=== PATIENT | female | born 1935 | race Caucasian/White ===

== ENCOUNTER 2017-03-23 04:52 | Inpatient (IN) | payer OTHER ==
[2017-03-09 12:54] VITALS: BMI 32.0
[~2017-03-23] VITALS: Ht 162.6 cm; Wt 86.4 kg
[2017-03-23] VITALS (13 sets, daily range): BP systolic 103–155; BP diastolic 67–83; PULSE 68–84; TEMP 36.3–37.1; O2SAT 87–99; Ht 162.6 cm; Wt 86.4 kg
[~2017-03-23 04:52] MED LIST: ASPI81TA28 PO; ATEN-173 PO; CARB0.5D28 OPL; COLE625T PO; CYAN500T13 PO; DTRSR4 PO; GLIM4TAB2 PO; IPRATROPIUM NAE; LISI-729 PO; METF-384 PO; MULT-506 PO; NXM/40 PO; PANT40TA PO; ROSU20TA PO; SUCR1TAB PO; VITA1TAB4 PO
[2017-03-23] MEDS ORDERED: LACTATED RINGER'S 1000ML 1,000 ML IV SCH (06:00)
--- NOTE | 2017-03-23 06:47 | History & Physical Bridge Note ---
H&P Re-Evaluation Bridge Note: I have examined the patient, reviewed the History & Physical and in the interval since the performance of the History & Physical I have noted the following changes of clinical significance: No changes noted
[2017-03-23] MEDS ORDERED: PROPOFOL IV EMULSION 10 MG/ML 20 ML VIAL IV ONE (06:49)
[2017-03-23] MEDS ORDERED: NEOSTIGMINE METHYLSULFATE 5 MG/5 ML SYR ONE (06:49)
[2017-03-23] MEDS ORDERED: LARYING-O-JET KIT (LTA) EXT ONE ×2 (06:49)
[2017-03-23] MEDS ORDERED: GLYCOPYRROLATE INJ 0.2 MG/ML VIAL ONE ×2 (06:49→09:26)
[2017-03-23] MEDS ORDERED: ONDANSETRON INJ 2 MG/ML 2 ML VIAL ONE (06:49)
[2017-03-23] MEDS ORDERED: FENTANYL CITRATE INJ 50 MCG/1 ML 2 ML VIAL ONE (06:49)
[2017-03-23] MEDS ORDERED: ROCURONIUM BROMIDE 10 MG/ML 5 ML VIAL ONE (06:49)
[2017-03-23] MEDS ORDERED: DEXAMETHASONE SOD INJ 4 MG/ML VIAL ONE (06:49)
[2017-03-23] MEDS ORDERED: LIDOCAINE HCL 2% 2 ML VIAL (20MG/ML) ONE (06:49)
[2017-03-23] MEDS ORDERED: BUPIVACAINE LIPOSOME 1/3% 266 MG/20 ML VIAL INFIL ONE (07:27)
[2017-03-23] MEDS ORDERED: SODIUM CHLORIDE 0.9% PF 50 ML VIAL ONE (07:27)
[2017-03-23] MEDS ORDERED: ATROPINE SULFATE 0.1 MG/ML 5ML SYR IV PRN (08:00)
[2017-03-23] MEDS ORDERED: HYDROmorphone INJ 1 MG/ML SYR IV PRN (08:00)
[2017-03-23] MEDS ORDERED: EpHEDrine SULFATE INJ 50 MG/ML AMP IV PRN (08:00)
[2017-03-23] MEDS ORDERED: ONDANSETRON INJ 2 MG/ML 2 ML VIAL IV PRN ×2 (08:00→09:45)
[2017-03-23] MEDS ORDERED: FENTANYL CITRATE INJ 50 MCG/1 ML 2 ML VIAL IV PRN (08:00)
[2017-03-23] MEDS ORDERED: CEFAZOLIN SOD 1 GM VIAL ONE (08:16)
[2017-03-23] MEDS ORDERED: ESMOLOL HCL 10 MG/ML 10 ML VIAL ONE (09:45)
[2017-03-23] MEDS ORDERED: MoRPHine SULFATE 2 MG/ML CARP IV PRN (09:45)
[2017-03-23] MEDS ORDERED: DEXTROSE 50% 50 ML SYR IV PRN (10:00)
[2017-03-23] MEDS ORDERED: GLUCOSE 10 TABS/TUBE PO PRN (10:00)
[2017-03-23] MEDS ORDERED: GLUCOSE 40% GEL 15 GM TUBE PO PRN (10:00)
[2017-03-23] MEDS ORDERED: GLUCAGON FOR INJ 1 MG VIAL SQ PRN (10:00)
--- NOTE | 2017-03-23 10:06 | DIAGNOSTIC IMAGING REPORT ---
CHEST ONE VIEW PORTABLE CLINICAL HISTORY: med mass excision postoperative evaluation COMPARISON STUDY: No previous studies for comparison. FINDINGS: Chest 2 within the left chest. No significant postprocedural pneumothorax. Lungs show mild bronchovascular prominence. Potential trace amount of subcutaneous emphysema. IMPRESSION: No significant pneumothorax post left chest tube placement. Trace subcutaneous emphysema Electronically signed by: Kalin Willoughby M.D. 03/23/2017 10:05 AM Dictated Date/Time: 03/23/2017 10:04 AM
--- NOTE | 2017-03-23 10:36 | Anesthesiology Progress Note ---
Anesthesia Post Op Note Date & Time March 23, 2017 at 10:36 Vital Signs Pain Intensity: 0 Vital Signs Past 12 Hours Date Time Temp Pulse Resp B/P Pulse Ox O2 Delivery O2 Flow Rate FiO2 03/23/17 10:20 56 18 176/72 99 Nasal Cannula 3 03/23/17 10:10 57 18 175/70 99 Mask 6 03/23/17 10:00 57 18 175/76 99 Mask 10 Arterial Line 03/23/17 09:50 36.6 65 18 165/64 99 Mask 10 03/23/17 05:54 37.1 82 20 138/83 95 Room Air Notes Mental Status: alert / awake / arousable, participated in evaluation Pt Amnestic to Procedure: Yes Nausea / Vomiting: adequately controlled Pain: adequately controlled Airway Patency, RR, SpO2: stable & adequate BP & HR: stable & adequate Hydration State: stable & adequate Anesthetic Complications: no major complications apparent
--- NOTE | 2017-03-23 10:39 | OPERATIVE REPORT ---
DATE OF OPERATION: 03/23/2017 PREOPERATIVE DIAGNOSIS: Mediastinal mass. POSTOPERATIVE DIAGNOSIS: Same. PROCEDURE: Left thoracoscopy with excision of mediastinal mass. SURGEON: Dr. Burns. LOGGER ALL ROUND: Chas Gastelum PA-C. ANESTHESIA: General anesthesia with endotracheal intubation with a double lumen tube. SPECIFICS OF PROCEDURE: This is a very nice 81-year-old female who has never smoked cigarettes, who was found to have an enlarging mass in her mediastinum, was fairly far anterior but to the left. We discussed this and elected to proceed with removal. It was not in a good area for the radiologist to insert a needle. On 03/23/2017 I did an uncomplicated thoracoscopic resection of this mass. It appeared to be encapsulated. We had very little in the way of bleeding and essentially no air leak. We did do an Exparel block. He tolerated it very well. He was extubated in the room. OPERATION AND FINDINGS: PROCEDURE: The patient was brought to the operating room and placed in supine position. General anesthesia induced and endotracheal intubation was performed. After turning the patient in the right lateral decubitus position the left chest was prepped and draped in usual sterile fashion. She did have what appeared to be a fungal involvement of her inframammary fold on the left, but we did not make our incisions there. After calling an appropriate time out and giving prophylatic antibiotics one lung intubation ensued. She was sterilely draped. An incision was made from the tip of the scapula, 1 interspace below a 5 mm port was placed. CO2 and insufflated. Upon placing a 5 mm 0 degree scope there were some adhesions of the right upper lobe and the chest wall laterally. Two 10 mm scopes were placed, 1 in about the fourth interspace, one about the sixth interspace more anteriorly. The Harmonic scalpel was used to take down these adhesions without difficulty. The mass was easily seen. It was easily taken down from adhesions of the chest wall; however, it appeared to be adherently involved with the lingula. I used an Endo-GAGE stapler several times and fired across this to remove a small portion along with it. I was unable to get under that and we were anterior to the phrenic nerve. After taking down all of the adhesions posteriorly I was able to free it up using the Harmonic scalpel without difficulty. It was placed in an Endobag and removed. It appeared to be encapsulated. Exparel 266 mg (liposomal bupivacaine) mixed with 60 mL total of normal saline and used to inject intrathoracically for intercostal block from the 2nd to the 11th rib. A chest tube was placed in the anterior inferior incision and directed towards the apex. This was held in place with heavy silk suture. Muscle layers and the other 2 thoracostomy ports were closed with 0 Vicryl. 4-0 Monocryl was used to close the skin incisions. She tolerated it quite well. Extubated in the room. I attest to the content of the Intraoperative Record and any orders documented therein. Any exceptions are noted below. MTDD
[2017-03-23] MEDS: SODIUM CHLORIDE 0.9% 1000ML 1,000 ML IV SCH (11:45)
[2017-03-23] MEDS: OXYCODONE HCL IR 5 MG TAB (IMMEDIATE RELEASE) PO PRN ×2 (11:45→19:32)
[2017-03-23] MEDS ORDERED: FLUCONAZOLE 100 MG TAB PO ONE (11:45)
[2017-03-23] MEDS ORDERED: ARTIFICIAL TEARS OP SOLN OPL PRN ×2 (13:00)
[2017-03-23] MEDS: SUCRALFATE 1 GM TAB PO SCH ×3 (13:10→20:18)
[2017-03-23] MEDS: NYSTATIN POWDER 15GM BTL EXT SCH (13:10)
[2017-03-23] MEDS: INSULIN ASPART 100 UNITS/ML 3 ML PEN SC SCH ×3 (13:13→20:38)
[2017-03-23] MEDS: ACETAMINOPHEN IV 1,000 MG in EMPTY BAG 0 ML IV SCH ×2 (13:40→22:12)
[2017-03-23] MEDS: METOCLOPRAMIDE HCL INJ 5 MG/ML 2 ML VIAL IV. SCH ×2 (13:40→22:14)
[2017-03-23] MEDS: KETOROLAC TROMETHAMINE 15 MG/ML VIAL IV. SCH ×2 (13:40→22:13)
[2017-03-23] MEDS: CEFAZOLIN IV 2,000 MG in DEXTROSE 5% 50ML 100 ML IV SCH ×2 (16:11→23:28)
[2017-03-23] MEDS: DOCUSATE SODIUM 100 MG CAP PO SCH (20:20)
[2017-03-23] MEDS: IPRATROPIUM BROMIDE NASAL SPRAY 0.06% 15ML NAE SCH (20:20)
[2017-03-23] MEDS: ROSUVASTATIN CALCIUM 20 MG TAB PO SCH (20:20)
[2017-03-23] MEDS: ASPIRIN 81 MG ECTAB PO SCH (20:21)
[2017-03-23] MEDS: TOLTERODINE TARTRATE LA 4 MG CAPCR PO SCH (20:21)
[2017-03-23] MEDS: COLESEVELAM 625 MG TAB PO SCH (20:47)
[2017-03-23] MEDS ORDERED: COLESEVELAM 625 MG TAB PO SCH (21:00)
[2017-03-23] MEDS ORDERED: NON-FORMULARY MEDICATION (Esomeprazole Magnesium (Nexium) 40 MG) PO SCH (21:00)
[2017-03-23] MEDS ORDERED: CEFAZOLIN IV 2,000 MG in DEXTROSE 5% 50ML 50 ML IV SCH (23:45)
[2017-03-24] VITALS (8 sets, daily range): BP systolic 98–130; BP diastolic 61–73; PULSE 76–96; TEMP 36.8–37; O2SAT 91–95
[2017-03-24] MEDS: SODIUM CHLORIDE 0.9% 1000ML 1,000 ML IV SCH (02:03)
[2017-03-24] MEDS: METOCLOPRAMIDE HCL INJ 5 MG/ML 2 ML VIAL IV. SCH (05:28)
[2017-03-24] MEDS: KETOROLAC TROMETHAMINE 15 MG/ML VIAL IV. SCH ×3 (05:28→22:00)
[2017-03-24] MEDS: ACETAMINOPHEN IV 1,000 MG in EMPTY BAG 0 ML IV SCH (05:29)
--- NOTE | 2017-03-24 08:04 | DIAGNOSTIC IMAGING REPORT ---
CHEST ONE VIEW PORTABLE CLINICAL HISTORY: Mass excision. COMPARISON STUDY: Chest radiograph March 23, 2017. FINDINGS: A trace left apical pneumothorax with superior pleural separation of 5 mm is noted. A left-sided chest tube remains in place. There is mild left basilar opacity. Linear right midlung opacity favors atelectasis or scarring. There are cholecystectomy clips. There is no evidence of pulmonary edema. IMPRESSION: Trace left apical pneumothorax with left chest tube in place. Electronically signed by: Huber Leyva M.D. 03/24/2017 8:03 AM Dictated Date/Time: 03/24/2017 7:55 AM
[2017-03-24 08:12] LABS: BASO % 0.1 %; BASO ABS # 0.02 K/uL (0-0.2); COMPLETE YES; EOS % 0.3 %; IG% 0.2 %; LYMPH % 27.5 %; LYMPH ABS # 4.04 K/uL (1.2-3.4); MEAN CELL VOLUME 87.7 fL (80-100); MEAN CORPUSCULAR HEMOGLOBIN 28.5 pg (25-34); MEAN CORPUSCULAR HGB CONC 32.5 g/dl (32-36); MEAN PLATELET VOLUME 11.1 fL (7.4-10.4); MONO % 7.1 %; NEUT % 64.8 %; PLATELET COUNT 156 K/uL (130-400); RED BLOOD COUNT 3.65 M/uL (4.2-5.4); WHITE BLOOD COUNT 14.71 K/uL (4.8-10.8)
[2017-03-24] MEDS: FLUCONAZOLE 100 MG TAB PO SCH (08:19)
[2017-03-24] MEDS: CYANOCOBALAMIN 500 MCG TAB (VIT B-12) PO SCH (08:19)
[2017-03-24] MEDS: PANTOprazole SOD 40 MG TAB PO SCH (08:19)
[2017-03-24] MEDS: DOCUSATE SODIUM 100 MG CAP PO SCH ×2 (08:19→21:01)
[2017-03-24] MEDS: TOCOPHERYL, DL-ALPHA 400 INTER.UNIT CAP PO SCH (08:19)
[2017-03-24] MEDS: SUCRALFATE 1 GM TAB PO SCH ×4 (08:19→20:16)
[2017-03-24] MEDS: GLIMEPIRIDE 2 MG TAB PO SCH (08:19)
[2017-03-24 08:20] LABS: INR 1.1 (0.9-1.1); PROTHROMBIN TIME (PATIENT) 12.2 SECONDS (9.0-12.0)
[2017-03-24] MEDS: MULTIVITAMIN TAB PO SCH (08:20)
[2017-03-24] MEDS: LISINOPRIL 5 MG TAB PO SCH (08:20)
[2017-03-24] MEDS: COLESEVELAM 625 MG TAB PO SCH ×2 (08:20→21:02)
[2017-03-24] MEDS: NYSTATIN POWDER 15GM BTL EXT SCH (08:20)
[2017-03-24 08:42] LABS: BUN/CREATININE RATIO 18.7 (10-20); CREATININE 0.82 mg/dl (0.60-1.20); POTASSIUM 4.2 mmol/L (3.5-5.1)
--- NOTE | 2017-03-24 08:50 | DIAGNOSTIC IMAGING REPORT ---
CHEST ONE VIEW PORTABLE HISTORY: chest tube removal COMPARISON: Chest 03/24/2017. FINDINGS: Left chest tube is been removed. Tiny left apical pneumothorax remains unchanged. Mild interstitial thickening is also unchanged. The heart is stable in size. Trace bilateral pleural effusions. Left basilar linear densities the right midlung zone linear density also remain unchanged. Cholecystectomy. IMPRESSION: Status post left chest tube removal. Tiny left pneumothorax persists. Electronically signed by: Jose Garcia M.D. 03/24/2017 8:49 AM Dictated Date/Time: 03/24/2017 8:47 AM
--- NOTE | 2017-03-24 08:57 | Surgery Progress Note ---
Subjective Date of Service: March 24, 2017. Pt. denies SOB. She has tolerated oral intake. She notes some discomfort from chest tube. Objective Vitals Date Time Temp Pulse Resp B/P Pulse Ox O2 Delivery O2 Flow Rate FiO2 03/24/17 07:21 37.0 76 16 98/61 95 Nasal Cannula 2.0 03/24/17 05:12 94 Nasal Cannula 1.0 03/24/17 05:10 Room Air 89.0 03/24/17 03:26 36.9 79 18 100/64 95 Nasal Cannula 1.0 03/23/17 23:30 Nasal Cannula 1.0 03/23/17 23:09 36.9 79 18 103/67 95 Nasal Cannula 1.0 03/23/17 22:40 94 Nasal Cannula 1.0 03/23/17 22:38 87 Room Air 03/23/17 20:15 78 128/74 03/23/17 19:30 36.3 73 19 131/73 94 Room Air 03/23/17 16:21 79 20 114/72 97 Nasal Cannula 2.0 03/23/17 16:00 Room Air 03/23/17 15:19 37.0 81 16 121/74 98 Nasal Cannula 2.0 03/23/17 14:00 84 20 129/77 92 Nasal Cannula 2.0 03/23/17 13:00 78 18 155/67 97 Nasal Cannula 2.0 03/23/17 12:20 72 16 108/73 98 Nasal Cannula 2.0 03/23/17 11:30 68 16 150/70 99 Nasal Cannula 2.0 03/23/17 11:00 98 Nasal Cannula 3.0 03/23/17 11:00 98 Nasal Cannula 3.0 03/23/17 10:40 56 18 154/86 99 Nasal Cannula 3 03/23/17 10:30 36.4 56 18 154/90 99 Nasal Cannula 3 03/23/17 10:20 56 18 176/72 99 Nasal Cannula 3 03/23/17 10:10 57 18 175/70 99 Mask 6 03/23/17 10:00 57 18 175/76 99 Mask 10 Arterial Line 03/23/17 09:50 36.6 65 18 165/64 99 Mask 10 Physical Exam General: + well developed, + well nourished, No distress CV: + RRR Pulmonary: + lungs clear, No accessory muscle use, No respiratory distress Abdomen: + non tender, + soft Extremities: No calf tenderness Neurologic: + alert & oriented x 3 Radiology CXR showed only trace apical left pneumothorax post-pull CXR shows only trace apical left pneumothorax Drains / Tubes chest tube (left sided; 66 cc drainage last shift; no air leak) Assessment & Plan 81 year old female POD#1 Left VATS with excision of mediastinal mass -path pending -CT removed this am -will increase ambulation -encourage use if IS, coughing and deep breathing -continue pain control measures RETENTION -hurley placed yesterday but removed this am for voiding trial INTERTRIGO -noted under breasts -continue diflucan 100 mg daily, mycostatin powder, along with dressing changes bid OTHER -lovenox for DVT prevention -will d/c home if pt. has successful voiding trial and can be weaned off oxygen
--- NOTE | 2017-03-24 09:00 | Discharge Instructions ---
Discharge Instructions Date of Service March 24, 2017. Admission Reason for Admission: Mediastinal Mass, Diabetes Mellitus Discharge Discharge Diagnosis / Problem: Mediastinal Mass Discharge Goals Goal(s): Learn about illness Activity Recommendations Activity Limitations: as noted below Lifting Limitations: none 1. Do not fly or SCUBA dive until cleared to do so by Dr. Burns. 2. You may remove dressing in 3 days and shower thereafter. No tub baths. . Instructions / Follow-Up Instructions / Follow-Up 1. Office appointment with Dr. Burns in 1 week. Office will call you with date and time of appointment. You will need a chest x-ray prior to appointment. 2. Place mycostatin powder under breasts daily x 7 days. Keep area clean and dry. Current Hospital Diet Patient's current hospital diet: Diabetes Type 2 Diet Discharge Diet Recommended Diet: Diabetes Type 2 Diet Procedures Procedures Performed: Left Video-Assisted Thoracoscopy with excision of Medistinal Mass Pending Studies Studies pending at discharge: no Medical Emergencies . Who to Call and When: Medical Emergencies: If at any time you feel your situation is an emergency, please call 911 immediately. . Non-Emergent Contact Non-Emergency issues call your: Surgeon Call Non-Emergent contact if: you have a fever, your pain is not controlled, wound has increased drainage . "Provider Documentation" section prepared by Obed Gastelum. . VTE Core Measure Inpt VTE Proph given/why not?: Enoxaparin (Lovenox)SQ
[2017-03-24] MEDS ORDERED: CLC100 PO (09:13)
[2017-03-24] MEDS ORDERED: TRAM-10 PO (09:13)
[2017-03-24] MEDS ORDERED: DFL100 PO (09:13)
[2017-03-24] MEDS ORDERED: NYSP EXT (09:13)
[2017-03-24 09:18] LABS: CALCIUM 7.6 mg/dl (8.5-10.1)
[2017-03-24] MEDS: IPRATROPIUM BROMIDE NASAL SPRAY 0.06% 15ML NAE SCH ×2 (09:18→21:01)
[2017-03-24] MEDS: INSULIN ASPART 100 UNITS/ML 3 ML PEN SC SCH ×4 (09:24→21:08)
[2017-03-24] MEDS: ENOXAPARIN 40 MG/0.4 ML SYR SQ SCH (12:19)
[2017-03-24] MEDS: ACETAMINOPHEN 325 MG TAB PO SCH ×2 (13:10→20:16)
[2017-03-24] MEDS: ASPIRIN 81 MG ECTAB PO SCH (21:01)
[2017-03-24] MEDS: ROSUVASTATIN CALCIUM 20 MG TAB PO SCH (21:02)
[2017-03-24] MEDS: TOLTERODINE TARTRATE LA 4 MG CAPCR PO SCH (21:02)
[2017-03-25] MEDS: ACETAMINOPHEN 325 MG TAB PO SCH ×5 (00:13→23:46)
[2017-03-25] MEDS: KETOROLAC TROMETHAMINE 15 MG/ML VIAL IV. SCH (05:24)
[2017-03-25 08:40] VITALS: O2SAT 91
--- NOTE | 2017-03-25 08:43 | DIAGNOSTIC IMAGING REPORT ---
CHEST 2 VIEWS ROUTINE HISTORY: hypoxia COMPARISON: Chest 03/24/2017. FINDINGS: Small left hydropneumothorax. This is not significantly changed. Linear density at the left lung base have improved. Mild diffuse interstitial thickening, unchanged. The heart is normal in size. Right midlung zone linear density has also resolved. IMPRESSION: 1. Small left hydropneumothorax. This is not significantly changed. 2. Mild diffuse interstitial thickening is again noted. This could represent mild congestive change or chronic interstitial thickening. 4. Improved aeration within the left lung base. Electronically signed by: Jose Garcia M.D. 03/25/2017 8:41 AM Dictated Date/Time: 03/25/2017 8:39 AM
[2017-03-25 09:25] VITALS: BP 102/68
[2017-03-25] MEDS: INSULIN ASPART 100 UNITS/ML 3 ML PEN SC SCH ×4 (09:25→21:15)
[2017-03-25] MEDS: SUCRALFATE 1 GM TAB PO SCH ×4 (09:26→21:18)
[2017-03-25] MEDS: NYSTATIN POWDER 15GM BTL EXT SCH (09:26)
--- NOTE | 2017-03-25 09:26 | Surgery Progress Note ---
Subjective Date of Service: March 25, 2017. Pt. notes she is not SOB. No CP or abdominal pain. No N/V and tolerating oral intake well. Discussed with RN--pt. has oxygen desaturations in low to mid 80s with ambulation that improve with 1 liter of oxygen via NC. Pt. also required hurley catheter last night due to inability to void. No other concerns noted Objective Vitals Date Time Temp Pulse Resp B/P Pulse Ox O2 Delivery O2 Flow Rate FiO2 03/25/17 00:15 Nasal Cannula 1.0 03/24/17 23:23 36.8 83 18 107/67 94 Nasal Cannula 1.0 03/24/17 20:45 96 109/69 03/24/17 16:00 Nasal Cannula 1.0 03/24/17 15:15 37.0 89 17 103/63 92 Nasal Cannula 1.0 03/24/17 10:40 36.9 83 16 130/73 91 Room Air Physical Exam General: + well developed, + well nourished, No distress CV: + RRR Pulmonary: + pertinent finding (BS are decreased at bases bilaterally ), No accessory muscle use, No respiratory distress, No rhonchi, No wheezing Abdomen: + non tender, + non-distended, + soft Extremities: No calf tenderness Neurologic: + alert & oriented x 3 Radiology CXR today shows small left apical PTX unchanged from post-pull CXR; there is bibasilar atelectasis L>R Assessment & Plan 81 year old female POD#1 Left VATS with excision of mediastinal mass -path pending -continue mobilization and pain control measures HYPOXIA -noted with ambulation -likely due to atelectasis -will ambulation -pt. encouraged to use IS, along with coughing and deep breathing: -pt. noted to obtain 500 cc on IS at time of my visit RETENTION -pt. required replacement of hurley (03/24/17) -discussed with urology: -it is felt retention likely due to recent surgery/anesthesia -pt. will require hurley/bladder rest x 7 days, with trial of void as oupt. -urology to call pt. for office appt. -discussed with RN--pt. will be instructed on hurley care -pt. state she feels comfortable going home with hurley INTERTRIGO -noted under breasts -continue diflucan 100 mg daily, mycostatin powder, along with dressing changes bid OTHER -lovenox for DVT prevention -will d/c home once pt. weaned off oxygen -visiting nursing has been arranged
[2017-03-25] MEDS: GLIMEPIRIDE 2 MG TAB PO SCH (09:27)
[2017-03-25] MEDS: IPRATROPIUM BROMIDE NASAL SPRAY 0.06% 15ML NAE SCH ×2 (09:27→21:16)
[2017-03-25] MEDS: PANTOprazole SOD 40 MG TAB PO SCH (09:28)
[2017-03-25] MEDS: MULTIVITAMIN TAB PO SCH (09:28)
[2017-03-25] MEDS: FLUCONAZOLE 100 MG TAB PO SCH (09:28)
[2017-03-25] MEDS: CYANOCOBALAMIN 500 MCG TAB (VIT B-12) PO SCH (09:28)
[2017-03-25] MEDS: DOCUSATE SODIUM 100 MG CAP PO SCH ×2 (09:28→21:19)
[2017-03-25] MEDS: COLESEVELAM 625 MG TAB PO SCH ×2 (09:29→21:19)
[2017-03-25] MEDS: TOCOPHERYL, DL-ALPHA 400 INTER.UNIT CAP PO SCH (09:29)
[2017-03-25] MEDS: LISINOPRIL 5 MG TAB PO SCH (09:30)
[2017-03-25] MEDS: ENOXAPARIN 40 MG/0.4 ML SYR SQ SCH (09:53)
--- NOTE | 2017-03-25 10:16 | Urology Consultation ---
History General Date of Service: March 25, 2017. Primary Care Physician: Josef Adair D.O. Pt seen a urologist before?: No History of Present Illness 81 year old female s/p excision of mediastinal mass. Unfortunately she has developed post op urinary retention for which urology is consulted. Trial of void x2-3 attempted and she failed to void on her own. Hurley was reinserted. Pt reports no previous issues of urinary retention or urinary issues. Other than current inability to void denies any bothersome urinary symptoms. Laboratory Last 24 Hours Test 03/24/17 11:57 03/24/17 17:27 03/24/17 20:36 03/25/17 08:22 Bedside Glucose 153 mg/dl 164 mg/dl 201 mg/dl 178 mg/dl Current Inpatient Medications Medications (Trade) Dose Ordered Sig/Bull Route Start Time Stop Time Status Last Admin Dose Admin Fluconazole (Diflucan Tab) 100 mg QAM PO 03/24/17 09:00 04/03/17 08:59 03/25/17 09:28 100 MG Oxycodone HCl (Roxicodone Immediate Rel Tab) 5 mg Q6H PRN PO 03/23/17 09:45 04/06/17 09:44 03/23/17 19:32 5 MG Nystatin (Mycostatin Powder) 1 appln DAILY EXT 03/23/17 09:45 04/22/17 09:44 03/25/17 09:26 1 APPLN Aspirin (Ecotrin Tab) 81 mg HS PO 03/23/17 21:00 04/22/17 20:59 03/24/17 21:01 81 MG Atenolol (Tenormin Tab) 25 mg HS PO 03/23/17 21:00 04/22/17 20:59 03/24/17 21:01 25 MG Cyanocobalamin (Vitamin B-12 Tab) 500 mcg QAM PO 03/24/17 09:00 04/23/17 08:59 03/25/17 09:28 500 MCG Lisinopril (Zestril Tab) 5 mg QAM PO 03/24/17 09:00 04/23/17 08:59 Multivitamins (Multivitamin Tab) 1 tab QAM PO 03/24/17 09:00 04/23/17 08:59 03/25/17 09:28 1 TAB Pantoprazole Sodium (Protonix Tab) 40 mg QAM PO 03/24/17 09:00 04/23/17 08:59 03/25/17 09:28 40 MG Rosuvastatin Calcium (Crestor Tab) 20 mg HS PO 03/23/17 21:00 04/22/17 20:59 03/24/17 21:02 20 MG Sucralfate (Carafate Tab) 1 gm QIDM PO 03/23/17 12:30 04/22/17 12:29 03/25/17 09:26 1 GM Tolterodine Tartrate (Detrol LA Cap) 4 mg QPM PO 03/23/17 21:00 04/22/17 20:59 03/24/17 21:02 4 MG Artificial Tears (Artificial Tears) 1 drops PRN PRN OPL 03/23/17 13:00 04/22/17 12:59 Glimepiride (Amaryl Tab) 4 mg QAM PO 03/24/17 09:00 04/23/17 08:59 03/25/17 09:27 4 MG lc-Oyxlu-Blowbtwxlo Acetate (Vitamin E Cap) 400 interunit QAM PO 03/24/17 09:00 04/23/17 08:59 03/25/17 09:29 400 INTERUNIT Ipratropium [place] (Atrovent Nasal [place] 0.06%) 2 sprays BID GENET 03/23/17 21:00 04/22/17 20:59 03/25/17 09:27 2 SPRAYS Insulin Aspart (novoLOG ASPART) SLIDING SCALE G... ACHS SC 03/23/17 12:00 04/22/17 11:59 03/25/17 09:25 5 UNITS Enoxaparin Sodium (Lovenox Inj) 40 mg DAILY SQ 03/24/17 09:00 04/23/17 08:59 03/25/17 09:53 40 MG Ondansetron HCl (Zofran Inj) 4 mg Q4H PRN IV 03/23/17 09:45 04/22/17 09:44 Docusate Sodium (coLACE CAP) 100 mg BID PO 03/23/17 21:00 04/22/17 20:59 03/25/17 09:28 100 MG Morphine Sulfate (MoRPHine SULFATE INJ) Q1H PRN IV 03/23/17 09:45 04/06/17 09:44 Glucose (Glucose 40% Gel) 15-30 GRAMS 15 GRAMS... UD PRN PO 03/23/17 10:00 04/22/17 09:59 Glucose (Glucose Chew Tab) 4-8 Tablets 4 Tabl... UD PRN PO 03/23/17 10:00 04/22/17 09:59 Dextrose (Dextrose 50% 50ML Syringe) 25-50ML OF 50% DW IV FOR... UD PRN IV 03/23/17 10:00 04/22/17 09:59 Glucagon (Glucagon Inj) 1 mg UD PRN SQ 03/23/17 10:00 04/22/17 09:59 Colesevelam HCl (Welchol) 1,250 mg BID PO 03/23/17 21:00 04/22/17 20:59 03/25/17 09:29 1,250 MG Acetaminophen (Tylenol Tab) 650 mg Q6 PO 03/24/17 12:00 04/23/17 11:59 03/25/17 05:27 650 MG Labs were reviewed and are within normal limits unless listed below. Labs are available in the chart and at [facility] Past History diabetes, GERD, other (mediastinal mass) Social History Hx Tobacco Use In Past Year?: No Smoking: no current use Alcohol: no current use Drug use: none Marital status: Housing status: lives with family Occupation status: retired Allergies Coded Allergies: No Known Allergies (Unverified , 03/23/17) Medications Home Medications: Home Meds and Scripts Medications Dose Route/Sig Max Daily Dose Days Date Category Dose Instructions Nystop (Nystatin) 45 Appln/15 Gm Powd 1 Appln EXT DAILY 7 03/24/17 Rx Ultram (Tramadol HCl) 50 Mg Tab 50 Mg PO Q4H PRN 03/24/17 Rx Docusate Sodium 100 Mg Cap 100 Mg PO BID 30 03/24/17 Rx Fluconazole 100 Mg Tab 100 Mg PO QAM 5 03/24/17 Rx Refresh Tears (Carboxymethylcellulose Sodium) 0.5 % Dileep 1 Drop OPL PRN 03/09/17 Reported Nexium (Esomeprazole Magnesium) 40 Mg Capcr 40 Mg PO QPM 03/09/17 Reported Sucralfate 1 Gm Tab 1 Tab PO QIDM 30 03/09/17 Reported [Ipratropium] 2 Sprays GENET BID 03/09/17 Reported Protonix (Pantoprazole Sodium) 40 Mg Tab 40 Mg PO QAM 03/09/17 Reported Detrol LA (Tolterodine Tartrate) 4 Mg Capcr 1 Cap PO QPM 90 03/09/17 Reported Crestor (Rosuvastatin Calcium) 20 Mg Tab 20 Mg PO HS 03/09/17 Reported Tenormin (Atenolol) 25 Mg Tab 25 Mg PO HS 03/09/17 Reported Zestril (Lisinopril) 5 Mg Tab 5 Mg PO QAM 03/09/17 Reported Glimepiride 4 Mg Tab 1 Tab PO QAM 90 03/09/17 Reported Aspirin Ec (Aspirin) 81 Mg Tab 81 Mg PO HS 03/09/17 Reported PT WILL CHECK WITH SURGEON Welchol (Colesevelam HCl) 625 Mg Tab 1,350 Mg PO BID 03/09/17 Reported Glucophage (Metformin Hcl) 1,000 Mg Tab 1,000 Mg PO BID 03/09/17 Reported Vitamin B12 500MCG (Cyanocobalamin) 500 Mcg Tab 500 Mcg PO QAM 03/09/17 Reported Vitamin E 400 Unit Tab 400 Units PO QAM 03/09/17 Reported Multivitamin (Multivitamins) Tab 1 Tab PO QAM 03/09/17 Reported Inpatient Medications: Current Inpatient Medications Medications (Trade) Dose Ordered Sig/Bull Route Start Time Stop Time Status Last Admin Dose Admin Fluconazole (Diflucan Tab) 100 mg QAM PO 03/24/17 09:00 04/03/17 08:59 03/25/17 09:28 100 MG Oxycodone HCl (Roxicodone Immediate Rel Tab) 5 mg Q6H PRN PO 03/23/17 09:45 04/06/17 09:44 03/23/17 19:32 5 MG Nystatin (Mycostatin Powder) 1 appln DAILY EXT 03/23/17 09:45 04/22/17 09:44 03/25/17 09:26 1 APPLN Aspirin (Ecotrin Tab) 81 mg HS PO 03/23/17 21:00 04/22/17 20:59 03/24/17 21:01 81 MG Atenolol (Tenormin Tab) 25 mg HS PO 03/23/17 21:00 04/22/17 20:59 03/24/17 21:01 25 MG Cyanocobalamin (Vitamin B-12 Tab) 500 mcg QAM PO 03/24/17 09:00 04/23/17 08:59 03/25/17 09:28 500 MCG Lisinopril (Zestril Tab) 5 mg QAM PO 03/24/17 09:00 04/23/17 08:59 Multivitamins (Multivitamin Tab) 1 tab QAM PO 03/24/17 09:00 04/23/17 08:59 03/25/17 09:28 1 TAB Pantoprazole Sodium (Protonix Tab) 40 mg QAM PO 03/24/17 09:00 04/23/17 08:59 03/25/17 09:28 40 MG Rosuvastatin Calcium (Crestor Tab) 20 mg HS PO 03/23/17 21:00 04/22/17 20:59 03/24/17 21:02 20 MG Sucralfate (Carafate Tab) 1 gm QIDM PO 03/23/17 12:30 04/22/17 12:29 03/25/17 09:26 1 GM Tolterodine Tartrate (Detrol LA Cap) 4 mg QPM PO 03/23/17 21:00 04/22/17 20:59 03/24/17 21:02 4 MG Artificial Tears (Artificial Tears) 1 drops PRN PRN OPL 03/23/17 13:00 04/22/17 12:59 Glimepiride (Amaryl Tab) 4 mg QAM PO 03/24/17 09:00 04/23/17 08:59 03/25/17 09:27 4 MG pi-Iygul-Tddmefcddx Acetate (Vitamin E Cap) 400 interunit QAM PO 03/24/17 09:00 04/23/17 08:59 03/25/17 09:29 400 INTERUNIT Ipratropium [place] (Atrovent Nasal [place] 0.06%) 2 sprays BID GENET 03/23/17 21:00 04/22/17 20:59 03/25/17 09:27 2 SPRAYS Insulin Aspart (novoLOG ASPART) SLIDING SCALE G... ACHS SC 03/23/17 12:00 04/22/17 11:59 03/25/17 09:25 5 UNITS Enoxaparin Sodium (Lovenox Inj) 40 mg DAILY SQ 03/24/17 09:00 04/23/17 08:59 03/25/17 09:53 40 MG Ondansetron HCl (Zofran Inj) 4 mg Q4H PRN IV 03/23/17 09:45 04/22/17 09:44 Docusate Sodium (coLACE CAP) 100 mg BID PO 03/23/17 21:00 04/22/17 20:59 03/25/17 09:28 100 MG Morphine Sulfate (MoRPHine SULFATE INJ) Q1H PRN IV 03/23/17 09:45 04/06/17 09:44 Glucose (Glucose 40% Gel) 15-30 GRAMS 15 GRAMS... UD PRN PO 03/23/17 10:00 04/22/17 09:59 Glucose (Glucose Chew Tab) 4-8 Tablets 4 Tabl... UD PRN PO 03/23/17 10:00 04/22/17 09:59 Dextrose (Dextrose 50% 50ML Syringe) 25-50ML OF 50% DW IV FOR... UD PRN IV 03/23/17 10:00 04/22/17 09:59 Glucagon (Glucagon Inj) 1 mg UD PRN SQ 03/23/17 10:00 04/22/17 09:59 Colesevelam HCl (Welchol) 1,250 mg BID PO 03/23/17 21:00 04/22/17 20:59 03/25/17 09:29 1,250 MG Acetaminophen (Tylenol Tab) 650 mg Q6 PO 03/24/17 12:00 04/23/17 11:59 03/25/17 05:27 650 MG Review of Systems Review of Systems Constitutional: No fever Eyes: No blurred vision Neurological: No dizzy Endocrine: No excessive thirst Gastrointestinal: No abdominal pain Cardiovascular: No chest pain Respiratory: No shortness of breath Female : + see HPI, + urinary retention Physical Exam Vital Signs: Vital Signs Past 12 Hours Date Time Temp Pulse Resp B/P Pulse Ox O2 Delivery O2 Flow Rate FiO2 03/25/17 09:25 102/68 03/25/17 00:15 Nasal Cannula 1.0 03/24/17 23:23 36.8 83 18 107/67 94 Nasal Cannula 1.0 Physical Exam: General Appearance: WD/WN, no apparent distress Neck: no JVD Respiratory/Chest: no respiratory distress, no accessory muscle use Neurologic/Psychiatric: alert, normal mood/affect, oriented x 3 Skin: normal color, warm/dry Assessment & Plan Assessment & Plan Post op urinary retention Recommend leaving hurley in for 7-10 days for bladder rest. Plan to follow up in office for TOV. Has home health coming in- can assist with hurley cath care. Discussed above with pt and and agreeable to plan. Thanks for the consult. Our office will call for follow up appt.
[2017-03-25 11:21] VITALS: BP 126/56; PULSE 83; TEMP 36.7; O2SAT 93
[2017-03-25 14:38] VITALS: O2SAT 95
[2017-03-25 15:07] VITALS: BP 99/66; PULSE 91; TEMP 37; O2SAT 93
[2017-03-25] MEDS: ASPIRIN 81 MG ECTAB PO SCH (21:18)
[2017-03-25] MEDS: ROSUVASTATIN CALCIUM 20 MG TAB PO SCH (21:21)
[2017-03-25] MEDS: TOLTERODINE TARTRATE LA 4 MG CAPCR PO SCH (21:21)
[2017-03-25 23:00] VITALS: BP 94/51; PULSE 83; TEMP 37; O2SAT 92
[2017-03-26] MEDS: ACETAMINOPHEN 325 MG TAB PO SCH (05:37)
[2017-03-26 06:50] LABS: MEAN CELL VOLUME 87.4 fL (80-100); MEAN CORPUSCULAR HEMOGLOBIN 27.6 pg (25-34); MEAN CORPUSCULAR HGB CONC 31.6 g/dl (32-36); MEAN PLATELET VOLUME 11.1 fL (7.4-10.4); PLATELET COUNT 178 K/uL (130-400); RED BLOOD COUNT 3.66 M/uL (4.2-5.4); WHITE BLOOD COUNT 12.89 K/uL (4.8-10.8)
[2017-03-26 07:08] LABS: CREATININE 0.85 mg/dl (0.60-1.20)
[2017-03-26 08:14] VITALS: BP 127/74; PULSE 79; TEMP 36.7; O2SAT 92
[2017-03-26] MEDS: NYSTATIN POWDER 15GM BTL EXT SCH (08:32)
[2017-03-26] MEDS: PANTOprazole SOD 40 MG TAB PO SCH (08:33)
[2017-03-26] MEDS: DOCUSATE SODIUM 100 MG CAP PO SCH (08:33)
[2017-03-26] MEDS: CYANOCOBALAMIN 500 MCG TAB (VIT B-12) PO SCH (08:33)
[2017-03-26] MEDS: LISINOPRIL 5 MG TAB PO SCH (08:33)
[2017-03-26] MEDS: FLUCONAZOLE 100 MG TAB PO SCH (08:33)
[2017-03-26] MEDS: MULTIVITAMIN TAB PO SCH (08:33)
[2017-03-26] MEDS: TOCOPHERYL, DL-ALPHA 400 INTER.UNIT CAP PO SCH (08:33)
[2017-03-26] MEDS: COLESEVELAM 625 MG TAB PO SCH (08:33)
[2017-03-26] MEDS: IPRATROPIUM BROMIDE NASAL SPRAY 0.06% 15ML NAE SCH (08:33)
[2017-03-26] MEDS: ENOXAPARIN 40 MG/0.4 ML SYR SQ SCH (08:34)
[2017-03-26] MEDS: SUCRALFATE 1 GM TAB PO SCH (08:34)
[2017-03-26] MEDS: GLIMEPIRIDE 2 MG TAB PO SCH (08:34)
[2017-03-26] MEDS: INSULIN ASPART 100 UNITS/ML 3 ML PEN SC SCH (08:50)
[2017-03-26 11:23] VITALS: BP 127/74; PULSE 79; TEMP 36.7; O2SAT 92
--- NOTE | 2017-03-26 12:08 | DISCHARGE SUMMARY ---
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 2. Urinary retention. 3. Hypoxemia. HOSPITAL COURSE: This is a delightful 81-year-old female who was found to have a mass in her mediastinum. It was a bit inferior on the left side. On 03/23/2017 I brought the patient to the operating room and did an uncomplicated thoracoscopic resection of this mass. She did quite well with this, and extubated in the room. We had met negligible blood loss. We were able to pull her chest tube out quite quickly; however, the patient developed urinary retention. The chest tube was pulled on postop day 1. Her x-ray showed a small left pleural effusion and some atelectasis. I was surprised that she was hypoxic; however, with ambulation and with aggressive pulmonary toilet, the patient was able to be weaned off of oxygen. She looked quite good. She is moving her bowels. She is ambulating in the hallway and tolerating a diet. Unfortunately, we had to replace her Cardoso catheter a couple of times as she developed urinary retention. She was seen by the urologist and the decision was made to leave the Cardoso in place. She was discharged home with a Cardoso catheter. She was draining clear urine. Otherwise, I was quite happy with the patient's pain control. Discharge instructions were given for her wound care. I will see her back in the office in about a week. She will need to see urologist also.
--- NOTE | 2017-04-01 10:03 | EDITING REQUIRED CODING QUERY ---
PATHOLOGY To promote full compliance with coding requirements relating to patient care, physician participation is requested in all cases of application security architect uncertainty. Please assist us with the question(s) below: Please review the Pathology report and please document any relevant diagnosis(es) below. Thank you. [facility] Diagnosis(es):
== END 2017-03-26 12:15 | disposition home health service (06) | DRG 164 ==
LOC: ENRESERVTM → ENRESERVDT → C.ACU 04:52 → C.MSN 06:45
PROVIDERS: ADMIT Surgery; ATTEND Surgery
PROC: 0WBC4ZZ Excision of Mediastinum, Percutaneous Endoscopic Approach (ICD-10-PCS; principal; 2017-03-23 07:15)
DX: C38.1 Malignant neoplasm of anterior mediastinum (principal); J98.11 Atelectasis; I50.9 Heart failure, unspecified; R09.02 Hypoxemia; E11.9 Type 2 diabetes mellitus without complications; K21.9 Gastro-esophageal reflux disease without esophagitis; E78.5 Hyperlipidemia, unspecified; I10 Essential (primary) hypertension; E66.9 Obesity, unspecified; R33.8 Other retention of urine; L30.4 Erythema intertrigo

== ENCOUNTER → 2017-04-04 | Outpatient (CLI) | payer OTHER ==
[~2017-04-04] MED LIST changes: +CLC100 PO; +DFL100 PO; +NYSP EXT; +TRAM-10 PO
--- NOTE | 2017-04-04 10:32 | DIAGNOSTIC IMAGING REPORT ---
CHEST 2 VIEWS ROUTINE CLINICAL HISTORY: J98.59 Mediastinal mass COMPARISON STUDY: 03/25/2017, outside PET/CT scan dated 01/28/2017 FINDINGS: The cardiac and mediastinal contours remain stable. The anterior mediastinal mass described on the outside PET/CT scan, is difficult to visualize on conventional radiographic imaging. There are a few wispy opacities within the retrosternal fat. There is improving interstitial thickening. There is persisting blunting of the left lateral posterior costophrenic angles. The heart is normal in size. There is no overt failure. There is no lobar consolidation. IMPRESSION: 1. Improving interstitial thickening 2. Persistent blunting of the left lateral posterior costophrenic angles. Electronically signed by: Kamar Ruiz M.D. 04/04/2017 10:31 AM Dictated Date/Time: 04/04/2017 10:28 AM
== END | disposition home or self-care (01) ==
LOC: C.RAD 10:07
PROVIDERS: ATTEND Surgery
DX: J98.59 Other diseases of mediastinum, not elsewhere classified (principal); R91.8 Other nonspecific abnormal finding of lung field

== ENCOUNTER 2019-08-01 08:53 | Inpatient (IN) ==
--- NOTE | 2019-07-18 13:38 | Anesthesiology Consultation ---
Date of Service July 18, 2019 Assessment & Plan Chart Review Chart Review: Acceptable Risk for Surgery and Pending: Refer to Additional Notes / Consult section (need last cardiac note from six months ago) Consults Requested none History Surgery Operation Date: 07/25/19 11:30 Proposed Procedures p Robotic Left Video Assisted Thoracoscopy with Left Upper Lobe Wedge Resection - Jayro Burns MD, FACS Height/Weight Height: 5 ft 4 in Weight: 80.286 kg Allergies Allergy/AdvReac Type Severity Reaction Status Date / Time No Known Allergies Allergy Verified 07/17/19 07:30 Medications Home Medications Medication Instructions Recorded Confirmed Last Taken aspirin 81 mg tablet,delayed 81 mg PO QAM tab 07/05/19 07/17/19 Unknown release atenolol 25 mg tablet 25 mg PO QAM tab 07/05/19 07/17/19 Unknown colesevelam 625 mg tablet 625 mg PO BID tab 07/05/19 07/17/19 Unknown glimepiride 4 mg tablet 4 mg PO QAM tab 07/05/19 07/17/19 Unknown lisinopril 5 mg tablet 5 mg PO QAM tab 07/05/19 07/17/19 Unknown metformin ER 1,000 mg 24 hr 1,000 mg PO BID tab 07/05/19 07/17/19 Unknown tablet,extended release rosuvastatin 20 mg tablet 20 mg PO HS tab 07/05/19 07/17/19 Unknown tolterodine ER 4 mg 4 mg PO QAM cap 07/05/19 07/17/19 Unknown capsule,extended release 24 hr esomeprazole magnesium 40 mg PO QAM 07/17/19 07/17/19 Unknown losartan 25 mg PO QAM 07/17/19 07/17/19 Unknown Past Medical History Medical History Anemia hx Diabetes mellitus, type 2 niddm GERD (gastroesophageal reflux disease) Hiatal hernia Hyperlipidemia Hypertension Lung cancer with biopsy and radiation (~5 years ago) Osteoarthritis Overactive bladder Skin cancer hx Past Family History Family History Mother Family history of diabetes mellitus FHx: cancer Sister Family history of diabetes mellitus FHx: cancer Past Surgical History Surgical History History of appendectomy History of cardiac cath no stents. ~2013. follows with Dr. Purdy. History of cataract surgery bilateral History of section x1 History of cholecystectomy History of colonoscopy History of dilatation and curettage History of thoracotomy with biopsy History of total knee replacement right S/P TALISHA-BSO Social History Smoking Status: Never smoker Do You Dip or Chew Tobacco: No Hx Alcohol Use: No Hx Substance Use: No substance use type: does not use Testing Laboratory Results WBC 8.2 H/H 11.5/36.4 NA 135 K 5 CL 106 CO2 22 BUN 16 CREATININE 0.87 GLUCOSE 113 GFR 61 Electrocardiogram Date: 07/16/19 Findings: + NSR @ (91) Cardiac Catheterization Date: 02/23/17 non obstructive cardiac disease. normal LV function. normal LVEDP Pulmonary Function Test Date: 07/12/19 moderately impaired diffusion. moderate restriction by reduced total lung capacity
[~2019-08-01 08:53] MED LIST changes: -ASPI81TA28 PO; -ATEN-173 PO; -CARB0.5D28 OPL; -CLC100 PO; -COLE625T PO; -CYAN500T13 PO; +DEXAMETHASONE SOD INJ 4 MG/ML VIAL ONE; -DFL100 PO; -DTRSR4 PO; -GLIM4TAB2 PO; +GLYCOPYRROLATE 0.2 MG/ML VIAL ONE; -IPRATROPIUM NAE; +LIDOCAINE HCL 2% 2 ML VIAL/AMP(20MG/ML) INFIL ONE; -LISI-729 PO; +LR 15ML/HR IV SCH; -METF-384 PO; +MIDAZOLAM HCL 1 MG/ML 2ML VIAL ONE; -MULT-506 PO; +NEOSTIGMINE METHYLSULFATE 5 MG/5 ML SYR ONE; -NXM/40 PO; -NYSP EXT; +ONDANSETRON INJ 2 MG/ML 2 ML VIAL ONE; -PANT40TA PO; +PHENYLEPHRINE HCL 10 MG/ML VIAL ONE; +PROPOFOL IV EMULSION 10 MG/ML 20 ML VIAL IV ONE; +ROCURONIUM BROMIDE 10 MG/ML 5 ML VIAL ONE; -ROSU20TA PO; -SUCR1TAB PO; -TRAM-10 PO; -VITA1TAB4 PO; +fentaNYL citrate 100 MCG/2 ML VIAL ONE
[2019-08-01] MEDS ORDERED: ATROPINE SULFATE 0.1 MG/ML 10ML SYR IV PRN ×2 (12:05→17:09)
[2019-08-01] MEDS ORDERED: HYDROmorphone INJ 1 MG/ML SYRINGE IV PRN ×2 (12:05→17:10)
[2019-08-01] MEDS ORDERED: ONDANSETRON INJ 2 MG/ML 2 ML VIAL IV PRN ×3 (12:05→17:57)
[2019-08-01] MEDS ORDERED: KETOROLAC TROMETHAMINE 15 MG/ML VIAL IV PRN ×2 (12:05→17:09)
--- NOTE | 2019-08-01 12:17 | History & Physical Bridge Note ---
Date of Service August 01, 2019 History & Physical Bridge Note I have examined the patient, reviewed the History & Physical and in the interval since the performance of the History & Physical I have noted the following changes of clinical significance: no changes noted
[2019-08-01] MEDS ORDERED: BUPIVACAINE 0.5 % 5 MG/1 ML MPF 30ML VIAL ONE (12:20)
[2019-08-01] MEDS ORDERED: BUPIVACAINE LIPOSOME 1.3% 266 MG/20 ML VIAL ONE (12:21)
[2019-08-01] MEDS ORDERED: SODIUM CHLORIDE 0.9% PF 50 ML VIAL ONE (12:21)
[2019-08-01] MEDS ORDERED: CEFAZOLIN 250 MG/ML 1 GM VIAL ONE (13:42)
[2019-08-01] MEDS ORDERED: CEFAZOLIN 2000MG 2,000 MG/15 ML SYR IV ONE (13:47)
[2019-08-01] MEDS ORDERED: fentaNYL citrate 100 MCG/2 ML VIAL ONE (14:32)
--- NOTE | 2019-08-01 16:18 | Post Operative Brief Note ---
PG Immediate Post Op with CF Date of Surgery August 01, 2019 Pre & Post Diagnosis Operation Date: 08/01/19 10:50 Pre-Op Diagnosis: Mediastinal Mass, Left Lung Mass Post-Op Diagnosis: Mediastinal Mass, Left Lung Mass Procedure Operation Date: 08/01/19 10:50 Actual Procedures p Robotic Left Video Assisted Thoracoscopy with extensive lysis of adhesions and Left Upper Lobe Wedge Resection(Left) - Jayro Burns MD, FACS Surgeon Jayro Burns MD, FACS [employer] Pati MURPHY Estimated Blood Loss 200 Findings Consistent with Post-Op Diagnosis Drains Chest Tube
[2019-08-01] MEDS ORDERED: METOCLOPRAMIDE HCL INJ 5 MG/ML 2 ML VIAL IV ONE (16:40)
--- NOTE | 2019-08-01 16:46 | XRay Report ---
XR chest 1V portable CLINICAL HISTORY: left wedge resection COMPARISON STUDY: Chest radiograph March 24, 2017. PET/CT July 31, 2019. FINDINGS: Left chest tube is in place. Postoperative findings within the left lung are noted. No pneu mothorax is identified. There is pulmonary vascular congestion with possible mild pulmonary edema. Th ere is a trace right pleural effusion. Mild left lung airspace opacities are noted. IMPRESSION: 1. Postoperative findings within the left lung. Left chest tube in place. No pneumothorax identified. 2. Pulmonary vascular congestion with suspected mild pulmonary edema. Trace right pleural effusion. 3. Left lung airspace opacities. Electronically signed by: Huber Leyva M.D. 08/01/2019 4:45 PM
--- NOTE | 2019-08-01 17:45 | Anesthesiology Progress Note ---
Date of Service August 01, 2019 Anesthesia Post Procedure Vital Signs Vital Signs: Temp Pulse Resp BP BP Pulse Ox 08/01/19 17:35 66 20 142/54 H 98 08/01/19 17:25 65 20 141/57 H 98 08/01/19 17:15 36.5 C 66 21 139/61 98 08/01/19 17:05 65 19 144/58 H 97 08/01/19 16:55 65 24 150/59 H 100 08/01/19 16:45 64 20 125/85 98 08/01/19 16:35 36.0 C L 73 21 177/82 H 98 08/01/19 09:32 36.6 C 73 16 120/51 L 95 Pain Intensity Left Lateral Chest: Pain Intensity: 4 Transfer of Care Handoff Completed per policy Notes Mental Status: alert / awake / arousable and participated in evaluation Patient Amnestic to Procedure: Yes Nausea / Vomiting: adequately controlled Pain: adequately controlled Airway Patency, RR, SpO2: stable & adequate BP & HR: stable & adequate Hydration State: stable & adequate Anesthetic Complications: no major complications apparent and Pt Satisfied with anesthetic care
[2019-08-01] MEDS ORDERED: MoRPHine SULFATE 2 MG/ML CARP IV PRN (17:57)
[2019-08-01] MEDS ORDERED: SODIUM CHLORIDE 0.9% 1000ML 1,000 ML IV SCH (17:57)
[2019-08-01] MEDS ORDERED: PNEUMOCOCCAL ADMINISTRATION CHARGE ONE (19:15)
[2019-08-01] MEDS ORDERED: PNEUMOCOCCAL POLYSACCHARIDES 25 MCG/0.5 ML VIAL/SYR IM ONE (19:15)
[2019-08-01] MEDS: ACETAMINOPHEN 1,000 MG/100 ML VIAL IV SCH (19:36)
[2019-08-01] MEDS: ROSUVASTATIN CALCIUM 20 MG TAB PO SCH (20:19)
[2019-08-01] MEDS: PANTOprazole 40 MG TAB PO SCH (20:19)
[2019-08-01] MEDS: DOCUSATE SODIUM 100 MG CAP PO SCH (20:19)
[2019-08-01] MEDS: INSULIN ASPART 100 UNITS/ML 3 ML PEN SC SCH (21:01)
[2019-08-01] MEDS: OXYCODONE HCL IR 5 MG TAB (IMMEDIATE RELEASE) PO PRN (21:22)
[2019-08-01] MEDS: METOCLOPRAMIDE HCL INJ 5 MG/ML 2 ML VIAL IV SCH (23:17)
--- NOTE | 2019-08-01 23:24 | Operative Report ---
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 PROCEDURE: 1. Robot-assisted left thoracoscopic takedown of extensive adhesions. 2. Wedge resection of portion of lingula with old staple line and with some mediastinal tissues and fat. SURGEON: Jayro Burns MD. HIGH SCHOOL COMPUTER SCIENCE TEACHER: JEFFREY Carrasco (Mr. Gastelum was present for the entire case and was at the patient's bedside while I was at console). ANESTHESIA: General anesthesia with endotracheal intubation using double lumen tube. SPECIFICS OF PROCEDURE AND FINDINGS: Roxanna Ocampo is a very nice elderly 83-year-old female who underwent a resection of a mediastinal mass. 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 She had radiation therapy. I resected a portion of her left medial lingula, but it was not microscopically involved with cancer. At her staple line, the mass has been enlarging and this was evaluated with navigational bronchoscopies, but they were nondiagnostic. Quite concerned and referred her to me for tissue diagnosis. On 08/01/2019, patient was brought into the operating room and she had marked adhesions. The lingula was quite adherent to the mediastinal fat which is not surprising. This was the area of the mass. I excised all of this. I went to the chest wall and down into the pericardium and took all the tissue between. This was very thickened. I removed the old staple line. She tolerated it well with negligible air leak. She did ooze, however, had about 200 mL of blood loss, but hemodynamically did very well. DESCRIPTION OF PROCEDURE: The patient was brought to the operating room and laid in supine position. General anesthesia was induced and endotracheal intubation performed with a double lumen tube. The patient was placed in right lateral decubitus position. The left chest prepped and draped in the usual sterile fashion. I used 3 arms on the robot. We placed 3 separate ports. I started off by placing a port posteriorly an interspace above the tip of the scapula, a bit more medial. Upon entering, it could be seen there were no adhesions in this area, but there were marked adhesions. We then placed a camera port which was a couple of interspaces lower and more anterior and then several interspaces lower, we placed a third 8 mm port. We also placed an assistance port anteriorly. We then proceeded with a meticulous takedown of all the adhesions. It was quite extensive, but we took all of them down. There was oozing from the chest wall which we cauterized as well as from the adhesions themselves. We then came upon the lingula into the pericardial fat and it was quite stuck down. As can be imagined from the prior surgery and the radiation, there were adhesions. I stayed on the chest wall and went medially until I got more medial than the mass and then went down to the pericardium. I removed all of this tissue, it was quite stuck and we used the cautery from the [place] forceps. We were then able to pull up the entire lingula and I suctioned off a fairly good portion of this by using Endo-GAGE staplers. I really did not see much of an air leak. At the conclusion of the case, she had a tiny leak. We lost about 200 mL of blood from oozing of the chest wall in the adhesion areas, but we were very meticulous about her blood or blood loss. A 266 mg of Exparel was mixed with 30 mL of 0.5% Marcaine and 250 mL of normal saline. These were injected into each of the 4 port sites. We then performed an intercostal block under thoracoscopic guidance from the 2nd to the 12th rib. We placed a 24-Estonian chest tube to the anterior most port site directed towards the apex. We sutured it in place with heavy silk suture. A 4-0 Monocryl was used in running subcuticular fashion to approximate the wound edges. She tolerated it quite well and was extubated in the room and her x-ray looked quite good at the conclusion. I attest to the content of the Intraoperative Record and any orders documented therein. Any exception s are noted below.
[2019-08-02] MEDS: ACETAMINOPHEN 1,000 MG/100 ML VIAL IV SCH (02:01)
--- NOTE | 2019-08-02 07:34 | XRay Report ---
XR chest 1V portable CLINICAL HISTORY: 83 years-old Female presenting with left lung resection. TECHNIQUE: Portable upright AP view of the chest was obtained. COMPARISON: 08/01/2019. FINDINGS: Large bore left pleural drain positioned at the left mid lung, slightly retracted from prior exam. Ex uberant soft tissue emphysema along the left chest wall tracking into the left base of the neck incre ased from prior exam. Atherosclerosis of the aortic arch. Cardiac silhouette mildly enlarged. Diffuse ly prominent lung markings. Postsurgical changes with a suture line noted in the left hilar and infra hilar regions. No large effusion. Redemonstration of the trace left apical pneumothorax. Degenerative changes of the thoracic spine. Upper abdomen normal. IMPRESSION: 1. Interval development of significant chest wall and base of the neck emphysema. This raises concer n for an air leak. 2. Additionally, new trace left apical pneumothorax. 3. Suspected mild congestive change in the setting of mild cardiomegaly. Electronically signed by: Saleem Da Silva M.D. 08/02/2019 7:33 AM
[2019-08-02] MEDS: METOCLOPRAMIDE HCL INJ 5 MG/ML 2 ML VIAL IV SCH (08:08)
[2019-08-02] MEDS: IPRATROPIUM BROMIDE NASAL SPRAY 0.06% 15ML NAE SCH ×3 (08:09→20:26)
[2019-08-02] MEDS: ASPIRIN 81 MG ECTAB PO SCH (08:11)
[2019-08-02] MEDS: TOCOPHERYL, DL-ALPHA 400 UNITS CAP PO SCH (08:11)
[2019-08-02] MEDS: TOLTERODINE TARTRATE LA 4 MG CAPCR PO SCH (08:11)
[2019-08-02] MEDS: MULTIVITAMIN TAB PO SCH (08:11)
[2019-08-02] MEDS: DOCUSATE SODIUM 100 MG CAP PO SCH ×2 (08:11→20:27)
[2019-08-02] MEDS: CYANOCOBALAMIN 500 MCG TABLET (VITAMIN B-12) PO SCH (08:11)
[2019-08-02] MEDS: lisinopriL 5 MG TAB PO SCH (08:12)
[2019-08-02] MEDS: LOSARTAN POTASSIUM 25 MG TAB PO SCH (08:12)
[2019-08-02] MEDS: ATENOLOL 25 MG TABLET PO SCH (08:12)
--- NOTE | 2019-08-02 08:39 | Anesthesiology Progress Note ---
Date of Service August 02, 2019 Anesthesia Post Procedure Vital Signs Vital Signs: Temp Pulse Pulse Resp BP BP Pulse Ox 08/02/19 05:53 36.7 C 94 H 16 103/65 92 08/02/19 04:05 36.7 C 90 18 118/68 94 08/02/19 01:54 37.2 C 92 H 16 100/64 95 08/01/19 23:50 36.4 C L 88 16 119/71 95 08/01/19 22:55 36.6 C 91 H 18 108/57 L 99 08/01/19 21:47 36.7 C 85 18 115/68 97 08/01/19 21:17 36.8 C 72 18 120/71 97 08/01/19 20:03 37.0 C 77 18 108/67 98 08/01/19 18:57 36.4 C L 82 16 137/78 97 08/01/19 18:24 36.7 C 70 18 133/79 97 08/01/19 17:35 66 20 142/54 H 98 08/01/19 17:25 65 20 141/57 H 98 08/01/19 17:15 36.5 C 66 21 139/61 98 08/01/19 17:05 65 19 144/58 H 97 08/01/19 16:55 65 24 150/59 H 100 08/01/19 16:45 64 20 125/85 98 08/01/19 16:35 36.0 C L 73 21 177/82 H 98 08/01/19 09:32 36.6 C 73 16 120/51 L 95 Pain Intensity Left Lateral Chest: Pain Intensity: 8 Left Shoulder: Pain Intensity: 7 Notes Mental Status: alert / awake / arousable and participated in evaluation Patient Amnestic to Procedure: Yes Nausea / Vomiting: adequately controlled Pain: adequately controlled Airway Patency, RR, SpO2: stable & adequate BP & HR: stable & adequate Hydration State: stable & adequate Anesthetic Complications: no major complications apparent and Pt Satisfied with anesthetic care
[2019-08-02] MEDS: ACETAMINOPHEN 325 MG TAB PO SCH ×3 (08:55→20:27)
[2019-08-02] MEDS: INSULIN ASPART 100 UNITS/ML 3 ML PEN SC SCH ×4 (08:57→20:53)
[2019-08-02] MEDS ORDERED: GLIMEPIRIDE 2 MG TAB PO SCH (09:00)
--- NOTE | 2019-08-02 09:31 | Progress Note ---
DATE: 08/02/2019 Ms. Ocampo was seen today on 08/02/2019. Yesterday, we performed a reoperative robot-assisted thoracoscopic takedown of multiple adhesions as well as a wedge resection of the lingular mass and mediastinal mass. The patient has a history of thymic carcinoma. We were quite happy with how the surgery turned out. She had a very small air leak which is present but still very small. She has drained some fluid, but I thought her chest x-ray looked quite good. At this point, I would simply make sure we continue to ambulate her, work on pulmonary toilet. When her air leak stops, we will pull this tube and send her home. I suspect she is going to be here for another couple of days.
[2019-08-02] MEDS: OXYCODONE HCL IR 5 MG TAB (IMMEDIATE RELEASE) PO PRN (12:45)
[2019-08-02] MEDS ORDERED: ENOXAPARIN INJ 40 MG/0.4 ML SYR SQ ONE (17:15)
[2019-08-02] MEDS: PANTOprazole 40 MG TAB PO SCH (20:27)
[2019-08-02] MEDS: ROSUVASTATIN CALCIUM 20 MG TAB PO SCH (20:27)
[2019-08-03] MEDS: OXYCODONE HCL IR 5 MG TAB (IMMEDIATE RELEASE) PO PRN ×2 (00:30→10:30)
[2019-08-03] MEDS: ACETAMINOPHEN 325 MG TAB PO SCH ×4 (04:04→21:17)
[2019-08-03 06:03] LABS: Hematocrit (blood only) 28.5 % (37-47); Mean Corpuscular Hgb Conc 31.6 g/dL (32-36); Mean Corpuscular Volume 88.8 fL (80-100); Mean Platelet Volume 10.9 fL (7.4-10.4); Platelet Count 136 K/uL (130-400); RDW Coefficient of Variation 16.4 % (11.5-14.5); RDW Standard Deviation 53.8 fL (36.4-46.3); Red Blood Count 3.21 M/uL (4.2-5.4); White Blood Count 11.21 K/uL (4.8-10.8)
[2019-08-03 06:35] LABS: Creatinine Clr Calc Pharmacy 34.7 ml/min; Est GFR (African American) 46.8; Est GFR (Non-African American) 40.4
--- NOTE | 2019-08-03 07:18 | XRay Report ---
XR chest 1V portable CLINICAL HISTORY: 83 years-old Female presenting with left lung resection. TECHNIQUE: Portable upright AP view of the chest was obtained. COMPARISON: 08/02/2019. FINDINGS: Large bore left pleural drain terminates in the mid left lung. Extensive associated soft tissue emphy sema tracking along the left chest wall and left base of the neck. Atherosclerosis of the aortic arch . The cardiac silhouette is enlarged though the left heart border is now obscured. Interval increase in left mid to lower lung opacity likely within the left upper lobe given obscuration of the left hea rt border. Persistent small left apical pneumothorax not significantly changed from prior. No large e ffusion. Right lung demonstrates interlobular septal thickening. Degenerative changes of the thoracic spine. Upper abdomen normal. IMPRESSION: 1. Persistent small left pleural pneumothorax with the left pleural drain in place. Significant asso ciated soft tissue emphysema. 2. Increased left lung opacity suggests new infiltrate or increased atelectasis. 3. Increased congestive change in the right lung in the setting of cardiomegaly. No luis pulmonary edema in the right lung. Electronically signed by: Saleem Da Silva M.D. 08/03/2019 7:17 AM
[2019-08-03] MEDS: IPRATROPIUM BROMIDE NASAL SPRAY 0.06% 15ML NAE SCH ×3 (08:17→21:15)
[2019-08-03] MEDS: lisinopriL 5 MG TAB PO SCH (08:18)
[2019-08-03] MEDS: MULTIVITAMIN TAB PO SCH (08:19)
[2019-08-03] MEDS: ASPIRIN 81 MG ECTAB PO SCH (08:19)
[2019-08-03] MEDS: CYANOCOBALAMIN 500 MCG TABLET (VITAMIN B-12) PO SCH (08:19)
[2019-08-03] MEDS: LOSARTAN POTASSIUM 25 MG TAB PO SCH (08:19)
[2019-08-03] MEDS: ATENOLOL 25 MG TABLET PO SCH (08:19)
[2019-08-03] MEDS: TOCOPHERYL, DL-ALPHA 400 UNITS CAP PO SCH (08:19)
[2019-08-03] MEDS: TOLTERODINE TARTRATE LA 4 MG CAPCR PO SCH (08:19)
[2019-08-03] MEDS: DOCUSATE SODIUM 100 MG CAP PO SCH ×2 (08:20→21:17)
[2019-08-03] MEDS ORDERED: PIPERACILL/TAZOBAC CONSULT ACTIVE PRN (09:09)
[2019-08-03] MEDS: INSULIN ASPART 100 UNITS/ML 3 ML PEN SC SCH ×4 (09:14→21:09)
[2019-08-03] MEDS: ENOXAPARIN INJ 40 MG/0.4 ML SYR SQ SCH (09:17)
--- NOTE | 2019-08-03 09:21 | Surgery Progress Note ---
Date of Service August 03, 2019 Assessment & Plan (1) Mediastinal mass: -pt. is s/p Wedge Resection of Left Lung on 08/01/19 -pathology is pending -CT noted to have intermittent air leak so will stay in today -CXR today shows small pneumothorax and concern for LLL atelectasis/infiltrate -due to CXR findings will proceed as follows: -start zosyn -chest percussion and flutter valve (discussed with respiratory therapist) -initiate mucinex -encourage coughing, deep breathing, use of IS -will repeat CXR in am -continue ambulation -lovenox in place for DVT prevention Subjective Pt. notes she is doing well without SOB or CP. No N/V and notes her apatite is good and tolerating diet. No difficulty voiding. She has been ambulating in hallway. No fevers, shakes, chills. Physical Exam Constitutional: well developed and well nourished; no acute distress Respiratory: normal respiratory effort; no respiratory distress and no labored breathing BS are noted to be decreased at bases; no rhonchi noted Gastrointestinal (Abdomen): Percussion/Palpation: abdomen soft; abdomen nontender Musculoskeletal: -no calf tenderness Results & Data Vital Signs (Past 12 Hours) Vital Signs Temp Pulse Pulse Resp BP Pulse Ox 08/03/19 07:20 36.6 C 107 H 18 96/64 L 96 08/03/19 04:40 96 08/03/19 04:07 90 08/03/19 03:55 36.6 C 119 H 18 91/58 L 94 08/03/19 00:00 36.4 C L 94 H 18 96/60 L 98 08/02/19 22:41 89 91/56 L PG Care Time/CCT Total # of Minutes Spent Total Time Spent with Patient: Total time spent is greater than 50% in coor dination of care (as documented) at patient's floor/unit and/or counseling patient:
[2019-08-03] MEDS ORDERED: PIPERACILLIN/TAZOBACTAM 3.375 GM in DEXTROSE 5% 100 ML IV ONE (09:30)
[2019-08-03] MEDS: guaiFENesin 600 MG TABCR PO SCH ×2 (10:29→21:17)
[2019-08-03] MEDS: ALBUT/IPRATROP 3MG/0.5MG NEB 3 ML VIAL NEB SCH ×3 (11:09→19:28)
[2019-08-03] MEDS: PIPERACILLIN/TAZOBACTAM 3.375 GM in DEXTROSE 5% 100 ML IV SCH (15:49)
[2019-08-03] MEDS: ROSUVASTATIN CALCIUM 20 MG TAB PO SCH (21:17)
[2019-08-03] MEDS: PANTOprazole 40 MG TAB PO SCH (21:17)
[2019-08-04] MEDS: PIPERACILLIN/TAZOBACTAM 3.375 GM in DEXTROSE 5% 100 ML IV SCH ×4 (00:01→23:45)
[2019-08-04] MEDS: ALBUT/IPRATROP 3MG/0.5MG NEB 3 ML VIAL NEB SCH ×4 (00:06→19:17)
[2019-08-04] MEDS: ACETAMINOPHEN 325 MG TAB PO SCH ×4 (03:44→20:40)
[2019-08-04 06:18] LABS: Basophils # (auto) 0.03 K/uL (0-0.2); Basophils % (auto) 0.3 %; Eosinophils # (auto) 0.22 K/uL (0-0.5); Eosinophils % (auto) 2.4 %; Hematocrit (blood only) 27.6 % (37-47); Hemoglobin 8.8 g/dL (12.0-16.0); Immature Granulocytes # (auto) 0.01 K/uL (0.00-0.02); Immature Granulocytes % (auto) 0.1 %; Lymphocytes # (auto) 2.44 K/uL (1.2-3.4); Lymphocytes % (auto) 26.4 %; Mean Corpuscular Hemoglobin 28.1 pg (25-34); Mean Corpuscular Volume 88.2 fL (80-100); Mean Platelet Volume 10.3 fL (7.4-10.4); Monocytes # (auto) 0.68 K/uL (0.11-0.59); Monocytes % (auto) 7.4 %; Neutrophils # (auto) 5.86 K/uL (1.4-6.5); Neutrophils % (auto) 63.4 %; Platelet Count 147 K/uL (130-400); RDW Coefficient of Variation 16.6 % (11.5-14.5); RDW Standard Deviation 53.8 fL (36.4-46.3); Red Blood Count 3.13 M/uL (4.2-5.4); White Blood Count 9.24 K/uL (4.8-10.8)
[2019-08-04 06:20] LABS: Mean Corpuscular Hgb Conc 31.9 g/dL (32-36)
[2019-08-04 06:34] LABS: BUN Creatinine Ratio 26.1 (10-20); Creatinine Clr Calc Pharmacy 43.2 ml/min; Est GFR (Non-African American) 52.6
--- NOTE | 2019-08-04 06:49 | Surgery Progress Note ---
Date of Service August 04, 2019 Assessment & Plan (1) Mediastinal mass: -pt. is s/p Wedge Resection of Left Lung on 08/01/19 -pathology did not reeal cancer -CT with no air leak this morning -discussed with Dr. Burns and will likely d/c it tomorrow -CXR today again shows small pneumothorax; area of LLL atelectasis/infiltrate has shown some improvement since yesterday's CXR: will continue the following: -zosyn (day #2) -chest percussion and flutter valve as discussed with respiratory therapist -alicia rueda -continue coughing, deep breathing, use of IS -CXR in am -continue ambulation -lovenox in place for DVT prevention Subjective Pt. state she had a good night. She denies SOB or CP. No N/V and she continues to tolerate diet. No difficulty voiding. She continues to ambulate in hallway. No fevers, shakes, chills. Discussed wtih RN and no concerns noted. Physical Exam Physical Exam: no crepitus noted in soft tissue of chest wall, back, or neck Constitutional: well developed and well nourished; no acute distress Neck: trachea midline Respiratory: normal respiratory effort; no respiratory distress and no labored breathing BS are decreased at bases L>R, however air movement at left base has improved since yesterday's exam Cardiovascular: Rate/Rhythm: regular rate and regular rhythm Gastrointestinal (Abdomen): Percussion/Palpation: abdomen soft; abdomen nontender Musculoskeletal: no calf tenderness Psychiatric: A+Ox3, euthymic affect Results & Data Vital Signs (Past 12 Hours) Vital Signs Temp Pulse Resp BP BP Pulse Ox 08/04/19 03:51 36.4 C L 98 H 17 106/57 L 90 08/04/19 00:06 96 H 18 93 08/03/19 23:53 36.6 C 98 H 17 115/66 94 08/03/19 19:35 93 H 20 90 PG Care Time/CCT Total # of Minutes Spent Total Time Spent with Patient: Total time spent is greater than 50% in coordination of care (as documented) at patient's floor/unit and/or counseling patient:
--- NOTE | 2019-08-04 07:07 | XRay Report ---
XR chest 1V portable CLINICAL HISTORY: left wedge resection COMPARISON STUDY: 08/03/2019 FINDINGS: There is left-sided subcutaneous emphysema unchanged from the preceding study. The left-wilma ed chest tube remains unchanged in position. There is a stable 19 mm left apical pneumothorax. There is improving pulmonary vascular congestion. There are improving left mid and lower lung zone airspace opacities[ IMPRESSION: 1. Persistent 19 mm left apical pneumothorax 2. Improving pulmonary vascular congestion 3. Slight improvement in the left mid and lower lung zone airspace opacities Electronically signed by: Kamar Ruiz M.D. 08/04/2019 7:06 AM
[2019-08-04] MEDS: INSULIN ASPART 100 UNITS/ML 3 ML PEN SC SCH ×4 (08:52→20:43)
[2019-08-04] MEDS: ENOXAPARIN INJ 40 MG/0.4 ML SYR SQ SCH (08:53)
[2019-08-04] MEDS: DOCUSATE SODIUM 100 MG CAP PO SCH ×2 (08:54→20:38)
[2019-08-04] MEDS: CYANOCOBALAMIN 500 MCG TABLET (VITAMIN B-12) PO SCH (08:54)
[2019-08-04] MEDS: MULTIVITAMIN TAB PO SCH (08:54)
[2019-08-04] MEDS: guaiFENesin 600 MG TABCR PO SCH ×2 (08:54→20:39)
[2019-08-04] MEDS: ATENOLOL 25 MG TABLET PO SCH (08:54)
[2019-08-04] MEDS: TOCOPHERYL, DL-ALPHA 400 UNITS CAP PO SCH (08:55)
[2019-08-04] MEDS: TOLTERODINE TARTRATE LA 4 MG CAPCR PO SCH (08:55)
[2019-08-04] MEDS: ASPIRIN 81 MG ECTAB PO SCH (08:55)
[2019-08-04] MEDS: LOSARTAN POTASSIUM 25 MG TAB PO SCH (08:55)
[2019-08-04] MEDS: IPRATROPIUM BROMIDE NASAL SPRAY 0.06% 15ML NAE SCH ×3 (08:56→20:34)
[2019-08-04] MEDS: ROSUVASTATIN CALCIUM 20 MG TAB PO SCH (20:39)
[2019-08-04] MEDS: PANTOprazole 40 MG TAB PO SCH (20:39)
[2019-08-05] MEDS: ALBUT/IPRATROP 3MG/0.5MG NEB 3 ML VIAL NEB SCH ×3 (00:44→13:13)
[2019-08-05] MEDS: ACETAMINOPHEN 325 MG TAB PO SCH ×3 (03:13→14:39)
--- NOTE | 2019-08-05 07:35 | XRay Report ---
XR chest 1V portable HISTORY: pneumothorax COMPARISON: Chest 08/04/2019. FINDINGS: No significant change in the small left pneumothorax. Left-sided chest tube is unchanged in position. The heart remains mildly enlarged. Mild vascular congestion persists. Improved aeration wi thin the left lung base. IMPRESSION: 1. No change in the small left apical pneumothorax. 2. Improved aeration within the left lung base. 3. A left-sided chest tube is unchanged in position. Electronically signed by: Jose Garcia M.D. 08/05/2019 7:33 AM
[2019-08-05] MEDS: PIPERACILLIN/TAZOBACTAM 3.375 GM in DEXTROSE 5% 100 ML IV SCH ×2 (08:56→09:29)
[2019-08-05] MEDS: ENOXAPARIN INJ 40 MG/0.4 ML SYR SQ SCH (08:56)
[2019-08-05] MEDS: LOSARTAN POTASSIUM 25 MG TAB PO SCH (08:57)
[2019-08-05] MEDS: CYANOCOBALAMIN 500 MCG TABLET (VITAMIN B-12) PO SCH (08:57)
[2019-08-05] MEDS: DOCUSATE SODIUM 100 MG CAP PO SCH (08:57)
[2019-08-05] MEDS: IPRATROPIUM BROMIDE NASAL SPRAY 0.06% 15ML NAE SCH ×2 (08:57→13:22)
[2019-08-05] MEDS: MULTIVITAMIN TAB PO SCH (08:57)
[2019-08-05] MEDS: TOCOPHERYL, DL-ALPHA 400 UNITS CAP PO SCH (08:58)
[2019-08-05] MEDS: ATENOLOL 25 MG TABLET PO SCH (08:58)
[2019-08-05] MEDS: TOLTERODINE TARTRATE LA 4 MG CAPCR PO SCH (08:58)
[2019-08-05] MEDS: ASPIRIN 81 MG ECTAB PO SCH (08:58)
[2019-08-05] MEDS: guaiFENesin 600 MG TABCR PO SCH (08:59)
[2019-08-05] MEDS: INSULIN ASPART 100 UNITS/ML 3 ML PEN SC SCH ×3 (09:00→17:42)
--- NOTE | 2019-08-05 09:57 | XRay Report ---
XR chest 1V portable HISTORY: chest tube removal COMPARISON: Chest 08/05/2019. FINDINGS: No significant change in the small left apical pneumothorax status post left chest tube rem oval. Patchy left mid to lower lung zone airspace opacities are again noted. The heart is stable in s ize. No pleural effusions. The right lung is clear. IMPRESSION: No significant change in the small left apical pneumothorax status post left chest tube removal. The left mid to lower lung zone airspace opacities persist. Electronically signed by: Jose Garcia M.D. 08/05/2019 9:55 AM
--- NOTE | 2019-08-05 23:44 | Discharge Summary ---
DATE OF ADMISSION: 08/01/2019 DATE OF DISCHARGE: 08/05/2019 DISCHARGE DIAGNOSES: 1. Inflammatory mass lingula. 2. Pulmonary infiltrates of unknown etiology postoperatively. 3. Status post thymectomy for thymic carcinoma 3 years ago. HOSPITAL COURSE: This patient is a delightful 83-year-old female who has a history of undergoing a left thoracoscopic excision of mediastinal mass which turned out to be thymic carcinoma. She got radiation therapy after this and followed and Dr. Josef De La Cruz from [facility] performed two navigational bronchoscopies as there was a mass in the anterior mediastinum adjacent to and involving her lingula which were concerning. He tried 2 navigational bronchoscopies, did not get a diagnosis and it was not an area that was accessible with a needle biopsy. After much discussion, we elected to proceed with a minimally invasive approach to this. On 08/01/2019, the patient underwent a robot-assisted left thoracoscopy with lysis of multiple adhesions. I then did a wedge resection of the lingula and excised all the pericardial fat in this area. She did well except there were some small holes that she had a small air leak postoperatively, but this eventually resolved by postoperative day 3. We kept her 1 more night. On postoperative day 4, she had no air leak. I removed her chest tube and her x-ray looked quite good except for an infiltrative pattern in the left lower lobe. She had been started on antibiotics, but really was not febrile. I am going to go ahead and keep her on for another week of Augmentin. I sent her home with tramadol although she really was not taking narcotics. I told her not to fill the prescription unless she needed to. Incisions were clean. She sounded good. She did not have a productive cough. Overall, I was quite pleased. She is on room air and ambulating in the hallway. I will see her back in the office later this week with an x-ray.
--- NOTE | 2019-08-08 11:00 | Coding Query ---
CODING QUERY To promote full compliance with coding requirements relating to patient care, provider participation is requested in all cases of fire assistant uncertainty. Please assist us with the question(s) below: Coding Question(s): Patient admitted with mediastinal mass-underwent excision of lung lingula. Patient had air leak, resolving after 3 days postop. Path,negative for cancer. Please check below the phrase that describes the postoperative air leak. Thanks for your help! [facility] Physician's Response(s): ____x___ The postoperative air leak is an expected occurrence of this procedure The postoperative airleak is a Complication of this procedure Cannot clinically correlate if the postoperative airleak is a complication or expected occurrence Other/ Please document: Principal Diagnosis: "that condition established after study, to be chiefly responsible for occasioning the admission of the patient to the hospital for care." Co-Existing Principal Diagnosis: "when two or more diagnoses equally meet the criteria for principal diagnosis as determined by the circumstances of admission, diagnostic work up, and/or therapy provided, and the Alphabetic Index, Tabular List, or another coding guideline does not provide sequencing direction, any one of the diagnoses may be sequenced first." "When the physician has documented what appears to be a current diagnosis in the body of the record, but has not included the diagnosis in the final diagnostic statement, the physician should be asked whether the diagnosis should be added." (Source [facility] 2 QTR90. p3-4) [facility]
== END 2019-08-05 19:15 | disposition home or self-care (01) | DRG 167 ==
LOC: ASU 08:53 → 3W 16:29